=== PATIENT | male | born 2000 | race Caucasian/White ===

== ENCOUNTER 2023-12-24 13:50 | Outpatient (OUT) | payer MEDICAID, SELFPAY ==
[2023-12-24 14:35] LABS: Basophils Percent Auto 0.5 % (0.2-2.0); Eosinophils Percent Auto 0.9 % (0.9-7.0); Hematocrit 40.5 % (42.0-54.0); Hemoglobin 13.7 g/dL (14.0-18.0); Immature Granulocytes Abs Auto 0.01 10^3/uL (0.00-0.03); Immature Granulocytes Pct Auto 0.2 % (0.0-0.5); Lymphocytes Absolute Auto 1.4 10^3/uL (1.2-3.8); Lymphocytes Percent Auto 32.1 % (20.5-60.0); Mean Corpuscular HGB Conc 33.8 g/dL (29.9-35.2); Mean Corpuscular Hemoglobin 29.3 pg (25.9-34.0); Mean Corpuscular Volume 86.5 fL (80.0-94.0); Mean Platelet Volume 9.7 fL (9.5-13.5); Monocytes Absolute Auto 0.4 10^3/uL (0.3-0.8); Monocytes Percent Auto 8.4 % (1.7-12.0); Neutrophils Absolute Auto 2.5 10^3/uL (1.4-6.5); Neutrophils Percent Auto 57.9 % (43.0-75.0); Platelet Count 254 10^3/uL (150-450); Red Blood Count 4.68 10^6/uL (4.70-6.10); Red Cell Distribution Width 11.9 % (11.0-15.0); White Blood Count 4.3 10^3/uL (4.0-11.0)
[2023-12-24 14:40] LABS: Estimated Average Glucose 97 mg/dL
[2023-12-24 15:42] LABS: Alanine Aminotransferase 15 U/L (16-63); Albumin Globulin Ratio 1.4; Albumin Level 4.2 g/dL (3.4-5.0); Alkaline Phosphatase 79 U/L (46-116); Anion Gap 12.2; Aspartate Amino Transferase 13 U/L (15-37); BUN Creatinine Ratio 16.5; Bilirubin Direct 0.1 mg/dL (0.0-0.2); Bilirubin Total 0.4 mg/dL (0.2-1.0); Calcium 8.8 mg/dL (8.5-10.1); Carbon Dioxide 30.8 mmol/L (21.0-32.0); Chloride 102 mmol/L (98-107); Chol HDL Ratio 2.8; Cholesterol 180 mg/dL (<=200); Estimated GFR (African America >60 (>=60); Estimated GFR (Non-African Ame >60 (>=60); Globulin 2.9 g/dL; Glucose 88 mg/dL (74-106); HDL Cholesterol 65 mg/dL (40-60); Sodium 141 mmol/L (136-145); Thyroid Stimulating Hormone 1.216 uIU/mL (0.358-3.740); Total Protein 7.1 g/dL (6.4-8.2); Triglycerides 28 mg/dL (<=150); VLDL CHOLESTEROL 5.6 mg/dL
== END 2023-12-24 13:51 | disposition home or self-care (01) ==
LOC: LAB 13:53
PROVIDERS: PCP Family Medicine; Visit Provider Family Medicine
DX: Z00.00 Encounter for general adult medical examination without abnormal findings (principal)
CPT/HCPCS: 36415; 80048; 80061; 80076; 83036; 84443; 85025

== ENCOUNTER 2024-12-17 18:18 | Emergency (ER) | payer MEDICAID, SELFPAY ==
[2024-12-17] VITALS (22 sets, daily range): BP systolic 111–115; BP diastolic 59–66; PULSE 56–84; TEMP 36.4–36.9; O2SAT 78–100; BMI 20.7
--- NOTE | 2024-12-17 18:20 | ECG_ITS ---
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 Measurements Intervals [place] Rate: 78 P: 70 IL: 178 QRS: 79 QRSD: 108 T: 64 QT: 396 QTc: 429 Interpretive Statements 1100 Sinus rhythm 2420 RSR (QR) in lead V1/V2, consistent with right ventricular conduction delay 24966 ST elevation, probably early repolarization 9130 borderline ECG No previous ECG available for comparison Electronically Signed On 12-18-2024 22:04:46 EDT by MIRIAM LONG M.D.
--- NOTE | 2024-12-17 18:29 | ED.GENADUL1 ---
HPI HPI - General Adult General Chief complaint: Altered Mental Status Stated complaint: other Time Seen by Provider: 12/17/24 18:20 Source: patient and other (EMS) Source information: Patient and EMS Mode of arrival: ambulance Limitations: altered mental status History of Present Illness HPI narrative: 24-year-old male to the emergency department chief complaint of feeling unwell after taking a marijuana gummy. He reports he took a single marijuana gummy today. This is not something he normally does. He reports he felt panicked, had chest pain, felt nauseous and vomited 1 time. He told family members to call 911 for him. He denies any other ingestions. He reports he currently just feels tired and like he is floating. He was otherwise at his baseline health. Past medical history: Denies Related Data Home Medications ?Medication ?Instructions ?Recorded ?Confirmed oxcarbazepine 600 mg tablet 600 mg PO BID 12/17/24 12/17/24 Allergies Allergy/AdvReac Type Severity Reaction Status Date / Time No Known Drug Allergies Allergy Verified 12/17/24 18:32 Review of Systems ROS Status of ROS 10 or more systems reviewed and unremarkable except as noted in history and below Exam Narrative Exam Narrative: VITALS: I have reviewed the triage vital signs. GENERAL: Adult male, anxious lying in bed with eyes closed NEURO: Alert and oriented x4. Moves all extremities. Face is symmetric and expressive. Cranial nerves II through XII grossly intact as tested. Muscular strength and sensation grossly intact upper and lower extremities bilaterally. No dysarthria. No aphasia. No ataxia. Normal gait. NIHSS 0. EYES: PERRL. No scleral icterus or conjunctival injection. No discharge. HENT: Normocephalic, atraumatic. Hearing is grossly intact. Nares grossly patent and without discharge. Mucous membranes moist. NECK: No JVD. Patient moves neck without restriction. CARDIO: Rhythm regular. Normal rate. No murmur, rub, or gallop. Pulses equal bilaterally in the upper and lower extremity. No lower extremity edema. PULM: Lungs clear to auscultation in all lazo. No wheezes, rales, or rhonchi. No conversational dyspnea. No splinting, stridor, or accessory muscle use. GI/: Abdomen is soft and non-tender. Normoactive bowel sounds. EXTREMITIES: Symmetric muscle bulk. No joint swelling. No clubbing, cyanosis, or deformity. SKIN: Warm and dry. Normal turgor. No rash or lesions appreciated. PSYCH: Anxious Constitutional Vital Signs, click to edit/add: Last Vital Signs Temp 97.6 F 12/17/24 18:28 Pulse 84 12/17/24 18:28 Resp 16 12/17/24 18:28 BP 111/66 12/17/24 18:28 Pulse Ox 99 12/17/24 18:37 O2 Del Method Nasal Cannula 12/17/24 18:37 O2 Flow Rate 4 12/17/24 18:37 Course Vital Signs Vital signs: Vital Signs Temperature 97.6 F 12/17/24 18:28 Pulse Rate 84 12/17/24 18:28 Respiratory Rate 16 12/17/24 18:28 Blood Pressure 111/66 12/17/24 18:28 Pulse Oximetry 96 12/17/24 18:28 Temperature 97.6 F 12/17/24 18:28 Pulse Rate 84 12/17/24 18:28 Respiratory Rate 16 12/17/24 18:28 Blood Pressure 111/66 12/17/24 18:28 Pulse Oximetry 99 12/17/24 18:37 Oxygen Delivery Method Nasal Cannula 12/17/24 18:37 Oxygen Delivery Flow Rate 4 12/17/24 18:37 Medical Decision Making MDM Narrative Medical decision making narrative: 24-year-old male to the emergency department with chief complaint of altered mental status after taking a marijuana gummy. Vital stable, the patient is afebrile. He has no focal neurologic deficits although his behavior and speech are bizarre. Will obtain CT head, basic labs. Ativan is given for his anxiety/mild agitation. Zofran for his nausea. Care was signed out to Dr. Elaine. Working diagnosis Altered mental status Medical Records Medical records reviewed: Yes I reviewed the patient's medical records ECG Data Attestation: I personally reviewed and interpreted this ECG as follows: (Normal sinus rhythm at a rate of 78. No STEMI. Normal QTc of 429.) Discharge Plan Discharge Patient Disposition: Still a Patient
[2024-12-17 18:38] LABS: Basophils Percent Auto 0.4 % (0.2-2.0); Eosinophils Absolute Auto 0.1 10^3/uL (0.0-0.7); Eosinophils Percent Auto 2.7 % (0.9-7.0); Hematocrit 38.8 % (42.0-54.0); Hemoglobin 13.6 g/dL (14.0-18.0); Immature Granulocytes Abs Auto 0.01 10^3/uL (0.00-0.03); Immature Granulocytes Pct Auto 0.2 % (0.0-0.5); Lymphocytes Percent Auto 38.3 % (20.5-60.0); Mean Corpuscular HGB Conc 35.1 g/dL (29.9-35.2); Mean Corpuscular Hemoglobin 29.4 pg (25.9-34.0); Monocytes Absolute Auto 0.5 10^3/uL (0.3-0.8); Monocytes Percent Auto 10.1 % (1.7-12.0); Neutrophils Absolute Auto 2.5 10^3/uL (1.4-6.5); Neutrophils Percent Auto 48.3 % (43.0-75.0); Platelet Count 290 10^3/uL (150-450); Red Blood Count 4.62 10^6/uL (4.70-6.10); Red Cell Distribution Width 12.1 % (11.0-15.0); White Blood Count 5.3 10^3/uL (4.0-11.0)
[2024-12-17] MEDS: ONDANSETRON PF 4 MG/2 ML VIAL IV (18:39)
[2024-12-17 18:55] LABS: Anion Gap 11.3; BUN Creatinine Ratio 20.2; Calcium 8.9 mg/dL (8.5-10.1); Carbon Dioxide 29.1 mmol/L (21.0-32.0); Chloride 103 mmol/L (98-107); Estimated GFR (African America >60 (>=60 mL/min/1.73m^2); Estimated GFR (Non-African Ame >60 (>=60 mL/min/1.73m^2); Glucose 111 mg/dL (74-106); Potassium 3.4 mmol/L (3.5-5.1); Sodium 140 mmol/L (136-145); Troponin I High Sensitivity 5.2 pg/mL (4.0-76.1)
[2024-12-17 19:02] LABS: Ethanol <3 mg/dL
== END 2024-12-17 21:55 | disposition home or self-care (01) ==
PROVIDERS: Student in an Organized Health Care Education/Training Program; Emergency Provider Internal Medicine; PCP Family Medicine
DX: T40.711A Poisoning by cannabis, accidental (unintentional), initial encounter (principal); R40.0 Somnolence
CPT/HCPCS: 36415; 70450; 80048; 80307; 80320; 84484; 85025; 93005; 96374; 99285; J2405